=== PATIENT | female | born 1960 ===

== ENCOUNTER 2022-01-06 09:49 | Outpatient (CLI) | payer OTHER | END 2022-01-06 09:51 | disposition home or self-care (01) | LOC: SONOGRAMA 09:49 | PROVIDERS: ATTEND Pathology Anatomic Pathology | DX: E04.1 Nontoxic single thyroid nodule (principal) ==

== ENCOUNTER 2023-04-04 06:00 | Day surgery (SDC) | payer OTHER ==
[~2023-04-04] VITALS: Ht 181.6 cm; Wt 88.5 kg
[~2023-04-04 06:00] MED LIST: CRESTOR20 MG PO; JANUMET 50-5001 EACH PO; JARDIANCE10 MG PO; NASAL MIST126 ML
== END 2023-04-04 12:45 | disposition home or self-care (01) ==
LOC: CIR.AMB 06:00
PROVIDERS: ATTEND Specialist
DX: L72.0 Epidermal cyst (principal); D48.1 Neoplasm of uncertain behavior of connective and other soft tissue; E11.9 Type 2 diabetes mellitus without complications; Z20.822 Contact with and (suspected) exposure to COVID-19; E78.5 Hyperlipidemia, unspecified